=== PATIENT | female | born 1990 | race Caucasian/White ===

== ENCOUNTER 2016-05-21 19:05 | Emergency (ER) | payer OTHER ==
[~2016-05-21] VITALS: Ht 170.2 cm; Wt 81.0 kg
[2016-05-21 19:05] VITALS: Ht 170.2 cm; Wt 81.0 kg
[2016-05-21] MEDS ORDERED: LIDOCAINE 2% (MDV) 20 ML INJ INJ ONE (19:30)
--- NOTE | 2016-05-21 19:39 | RADRPT ---
PROCEDURE: CT brain without IV contrast. CLINICAL INDICATION: Headache/trauma. TECHNIQUE: CT examination of the brain was performed on a 64-slice multidetector scanner. The pat ient was examined without IV contrast. Sagittal and coronal reformatted images were made. The imag es were reviewed on a PACS workstation. Total radiation dose: Total CTDIvol: 44 mGy. Total DLP: 720 mGy-cm. One or more of the following dose reduction techniques were used: automated exposure control, adjustment of the mA and/or kV acco rding to patient size, or use of iterative reconstruction technique COMPARISON: None available. FINDINGS: The ventricles and cerebral sulci are normal in size and morphology. The wei/white matter differen tiation is well preserved. There is no other abnormal intra-axial high, low density lesion, suggest ing tumor, infarct , bleeding, av malformation or inflammatory mass. No subdural or epidural hematoma. The visualized paranasal sinuses and mastoid air cells are clear. The orbits are unremarkable. The calvarium is intact. No scalp abnormalities are seen. IMPRESSION: 1. Unremarkable CT brain without IV contrast. RPTAT: GG .Keaton Llamas MD, Date Time Electronically viewed and signed by .Keaton Llamas MD, on 05/21/2016 19:38 .Y/
[2016-05-21] MEDS ORDERED: IBUPROFEN 600 MG TAB PO ONE (20:00)
[2016-05-21] MEDS ORDERED: IBUP-1542 PO (20:02)
[2016-05-21] MEDS ORDERED: CEPH-443 PO (20:03)
[2016-05-21 20:17] VITALS: BP 120/88; PULSE 92; RESP 18; TEMP 98.6
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
== END 2016-05-21 20:17 | disposition home or self-care (01) ==
LOC: FTE 19:05
DX: S01.81XA Laceration without foreign body of other part of head, initial encounter (principal); W22.8XXA Striking against or struck by other objects, initial encounter; Y92.9 Unspecified place or not applicable
CPT/HCPCS: 70450

== ENCOUNTER 2016-05-28 11:02 | Emergency (ER) | payer SELFPAY ==
[~2016-05-28] VITALS: Wt 80.0 kg
[~2016-05-28 11:02] MED LIST: CEPH-443 PO; IBUP-1542 PO
[2016-05-28] MEDS ORDERED: HYDR-906 PO (12:07)
[2016-05-28] MEDS ORDERED: BACITUD TOP (12:07)
--- NOTE | 2016-05-28 12:12 | ERD ---
ER Documentation Chief Complaint Date/Time DATE: 05/28/16 TIME: 12:10 Chief Complaint SUTURE REMOVAL ON LEFT ORBIT. NO BLEEDING HPI This is a 26-year-old female that presents to the ER for suture removal. Patient denies any fevers. She does admit to some chills, however feels that it was a dropped of air. Patient does admit to some pain around the area. There is no discharge from the area. No swelling. ROS 12 point review of systems was done, all negative except per HPI. Medications Home Meds Active Scripts Bacitracin* (Bacitracin Oint (UD)*) 1 Applic Oint, 1 APPLIC TOP ONCE for 3 Days , PKT APPLY TO Prov:HERIBERTO,RICH C 05/28/16 Hydrocodone/Acetaminophen ([place] 5-325 Tablet) 1 Each Tablet, 1 TAB PO Q6H Y for PAIN, #10 TAB Prov:RICH LOUIS C 05/28/16 Cephalexin* (Keflex*) 500 Mg Capsule, 500 MG PO BID for 7 Days, CAP Prov:CESAR LOUISNA C 05/21/16 Ibuprofen* (Motrin*) 600 Mg Tab, 600 MG PO Q6, #30 TAB Prov:HERIBERTO,RICH C 05/21/16 Allergies Allergies: Coded Allergies: No Known Drug Allergies (Verified Allergy, Unknown, 05/28/16) PMhx/Soc Medical and Surgical Hx: pt denies Surgical Hx History of Surgery: No Hx Miscellaneous Medical Probl: Yes (born w/ diabetes, resolved at age 6) Hx Alcohol Use: Yes Hx Substance Use: No Hx Tobacco Use: No Smoking Status: Never smoker Physical Exam Vitals Vital Signs Date Time Temp Pulse Resp B/P Pulse Ox O2 Delivery O2 Flow Rate FiO2 05/28/16 11:10 98.6 72 21 122/62 98 Physical Exam GENERAL: The patient is well developed and appropriate for usual state of health , in no apparent distress. HEENT: Atraumatic. CHEST: Clear to auscultation bilaterally. There are no rales, wheezes or rhonchi. HEART: Regular rate and rhythm. No murmurs, clicks, rubs or gallops. ABDOMEN: Soft, nontender and nondistended. Good bowel sounds. No rebound or guarding. No gross peritonitis. No gross organomegaly or masses. No Nichols sign or McBurney point tenderness. BACK: No midline or flank tenderness. EXTREMITIES: Equal pulses bilaterally. There is no peripheral clubbing, cyanosis or edema. No focal swelling or erythema. Full range of motion. Grossly neurovascularly intact. NEURO: Alert and oriented. Cranial nerves II through XII are intact. Motor strength in all 4 extremities with 5/5 strength. Sensation grossly intact. Normal speech and gait. SKIN: There is a healing 3 cm linear laceration to the left side of the forehead. 3 simple interrupted sutures are in place. No discharge, no wound dehiscence, no erythema. Procedures/MDM Suture Removal by me: Sutures removed with tweezers and scissors without incident. Wound shows no evidence of infection, foreign body, neurologic injury, vascular injury, open joint or tendon laceration. Patient to follow up PRN. Departure Diagnosis: Primary Impression: Encounter for removal of sutures Condition: Stable Patient Instructions: Suture Removal, No Complication Additional Instructions: Call your primary care doctor TOMORROW for an appointment during the next 1-2 days.See the doctor sooner or return here if your condition worsens before your appointment time. RICH LOUIS May 28, 2016 12:12
== END 2016-05-28 12:36 | disposition home or self-care (01) ==
LOC: FTE 11:02
DX: Z48.02 Encounter for removal of sutures (principal); H57.12 Ocular pain, left eye
CPT/HCPCS: 99284